=== PATIENT | female | born 1985 | race Caucasian/White ===

== ENCOUNTER → 2018-12-12 | Outpatient (CLI) | payer BC | LOC: M.ULTRA 09:54 | DX: E04.2 Nontoxic multinodular goiter (principal) ==

== ENCOUNTER → 2020-01-15 | Outpatient (CLI) | payer BC | LOC: M.ULTRA 01-14 07:30 | PROVIDERS: ATTEND Nurse Practitioner Family | DX: Z09 Encounter for follow-up examination after completed treatment for conditions other than malignant neoplasm (principal); E04.2 Nontoxic multinodular goiter ==

== ENCOUNTER 2020-01-25 22:13 | Emergency (ER) | payer BC ==
[~2020-01-25] VITALS: Ht 162.6 cm; Wt 79.4 kg
[2020-01-25 23:00] LABS: ABSOLUTE BASOPHILS 0.1 thou/uL (0.0-0.2); ABSOLUTE EOSINOPHILS 0.2 thou/uL (0.0-0.7); ABSOLUTE LYMPHOCYTES 2.8 thou/uL (0.8-5.3); ABSOLUTE MONOCYTES 0.7 thou/uL (0.0-1.2); ABSOLUTE NEUTROPHILS 6.7 thou/uL (1.6-8.1); BASOPHILS 1.1 %; EOSINOPHILS 1.8 %; HEMATOCRIT 41.6 % (37.0-47.0); HEMOGLOBIN 14.7 gm/dL (12.0-15.0); MCH 30.8 pg (26.0-34.0); MCHC 35.3 g/dL (28.0-37.0); MCV 87.4 fL (80.0-100.0); MONOCYTES 6.6 %; NUCLEATED RBCS 0 /100WBC; PLATELET COUNT* 295 thou/uL (150-400); POLYS 63.5 %; RBC 4.76 mil/uL (4.20-5.00); RDW-CV 12.6 % (10.5-14.5); WBC 10.5 thou/uL (4.0-11.0)
[2020-01-25 23:09] LABS: CALCIUM 9.3 mg/dL (8.5-10.1); CREATININE 0.7 mg/dL (0.6-1.3); POTASSIUM 3.6 mmol/L (3.5-5.1)
[2020-01-25] MEDS ORDERED: HYDROCODONE-ACE15 ML PO (23:23)
[2020-01-25 23:42] VITALS: BP 125/65
[2020-01-25] MEDS ORDERED: PERCOCET 7.5-31 EAC1 PO (23:50)
== END 2020-01-25 23:43 | disposition home or self-care (01) ==
LOC: M.ERS 22:13
PROVIDERS: Emergency Medicine
DX: B27.90 Infectious mononucleosis, unspecified without complication (principal); R11.2 Nausea with vomiting, unspecified; Z90.711 Acquired absence of uterus with remaining cervical stump

== ENCOUNTER → 2020-01-30 | Outpatient (CLI) | payer BC ==
[~2020-01-30] MED LIST: HYDROCODONE-ACE15 ML PO; PERCOCET 7.5-31 EAC1 PO
--- NOTE | 2020-01-31 16:06 | PATH ---
[address] [address] PATHOLOGY RPT PROCEDURE Name: PETROS JUÁREZ Room: [facility]#: [id number] Admission: 01/30/20 Date of : 87 Discharge: Report #: [id number] Path Case #: [id number] Note [facility] Accession Number: [id number] TESTS RESULT FLAG UNITS REF RANGE LAB Clinician Provided Cytology Information No. of containers..01 Other (Miscellaneous) Source: LEFT THYROID DIAGNOSIS: LEFT THYROID, IMAGE-GUIDED FNA: [place] CATEGORY II. CONSISTENT WITH BENIGN FOLLICULAR NODULE. SPECIMEN CONSISTS OF ABUNDANT FOLLICULAR CELLS WITH ABUNDANT COLLOID. THIS INTERPRETATION INCLUDES EVALUATION OF A CELL BLOCK. Pathologist ICD10: 02 R89.6 Signed out by: 02 Adilson Taylor MD, Pathologist NPI- [id number] Performed by: Tayo Damon, Ear Nose Throat Surgeon ([facility]) Gross description: 01 15ML, PINK, 4FX 4AD /LCS 01/30/2020 1201 Local FLAG LEGEND: L-Low Normal,H-High Normal,LL-Alert Low,HH-Alert High <-Panic Low,>-Panic High,A-Abnormal,AA-Critical Abnormal Performed at: [address] [place] [address] Juve Marlow MD, [address] [place] [phone] Adilson Taylor MD, Specimen Comment: A courtesy copy of this report has been sent to [phone] Specimen Comment: [id number] Specimen Comment: Report sent to / DR ENGEL Specimen Comment: A duplicate report has been generated due to demographic updates. Performed at: [address], [place], [place] [id number] MD Juve Marlow MD Phone: [phone]
== END | disposition home or self-care (01) ==
LOC: M.ULTRA 07:40
PROVIDERS: ATTEND Nurse Practitioner Family
DX: E04.1 Nontoxic single thyroid nodule (principal); R89.6 Abnormal cytological findings in specimens from other organs, systems and tissues; Z98.890 Other specified postprocedural states; Z79.899 Other long term (current) drug therapy